=== PATIENT | female | born 2000 | race Caucasian/White ===

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

== ENCOUNTER 2019-01-08 13:43 | Emergency (ER) | payer SELFPAY ==
[~2019-01-08] VITALS: Ht 180.3 cm; Wt 104.5 kg
[~2019-01-08 13:43] MED LIST: CELEXA20 MG PO; CLARITIN 10 MG10 MG PO; ESTRACE2 MG PO; LAMICTAL ODT50 MG PO; TYLENOL W/CODEI1 TAB PO
[2019-01-08 13:46] VITALS: Ht 180.3 cm; Wt 104.5 kg
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
[2019-01-08 15:30] VITALS: BP 134/88
== END 2019-01-08 15:38 | disposition home or self-care (01) ==
LOC: D.ER 13:43
DX: F31.30 Bipolar disorder, current episode depressed, mild or moderate severity, unspecified (principal); Z73.3 Stress, not elsewhere classified; F41.9 Anxiety disorder, unspecified; F90.9 Attention-deficit hyperactivity disorder, unspecified type; Z72.0 Tobacco use; Z72.89 Other problems related to lifestyle

== ENCOUNTER 2019-06-21 08:25 | Emergency (ER) | payer MEDICAID ==
[~2019-06-21] VITALS: Ht 180.3 cm; Wt 81.4 kg
[2019-06-21 08:30] VITALS: Ht 180.3 cm; Wt 81.4 kg
[2019-06-21 08:57] LABS: BASOPHILS 0.4 % (0-2); EOSINOPHILS 0.6 % (0-7); HEMATOCRIT 37.8 % (36.0-48.0); HEMOGLOBIN 12.1 g/dL (12-16); IMMATURE GRANULOCYTES 0.4 % (0-5); LYMPHOCYTES 28.7 % (15-50); MCH 27.6 pg (26.0-34.0); MCV 86.3 fL (80.0-100.0); MEAN PLATELET VOLUME 9.4 fL (7.4-10.4); MONOCYTES 12.4 % (2-11); NEUTROPHILS 57.5 % (40-80); PLATELET COUNT 281 10x3/uL (130-400); RBC 4.38 10x6/uL (4.00-5.40); RDW 14.1 % (11.5-14.5); WBC 14.2 10x3/uL (4.8-10.8)
[2019-06-21 09:13] LABS: CALC OSMOLALITY 274 mosm/kg (275-300); CALCIUM 8.2 mg/dL (8.5-10.1); CARBON DIOXIDE 26.9 mmol/L (21.0-32.0); CHLORIDE - SERUM 104 mmol/L (98-107); GLUCOSE 96 mg/dL (74-106); POTASSIUM - SERUM 3.3 mmol/L (3.5-5.1); SODIUM 138 mmol/L (136-145); UREA NITROGEN 10 mg/dL (7-18); eGFR NON AFRICAN AMERICAN 75 mL/min (90-120)
[2019-06-21 09:16] LABS: HCG SERUM NEGATIVE (NEGATIVE)
[2019-06-21 09:19] LABS: ALBUMIN 3.4 g/dL (3.4-5.0); ALKALINE PHOSPHATASE 104 U/L (30-120); ALT (SGPT) 70 U/L (10-68); BILIRUBIN - TOTAL 0.77 mg/dL (0.2-1.3); PROTEIN - SERUM 6.8 g/dL (6.4-8.2)
[2019-06-21 13:40] VITALS: BP 118/74
== END 2019-06-21 14:15 | disposition home or self-care (01) ==
LOC: D.ER 08:25
PROVIDERS: Emergency Medicine
DX: T14.8XXA Other injury of unspecified body region, initial encounter (principal); Y09 Assault by unspecified means; Y93.9 Activity, unspecified; Y92.9 Unspecified place or not applicable; F15.10 Other stimulant abuse, uncomplicated; F19.10 Other psychoactive substance abuse, uncomplicated; S01.01XA Laceration without foreign body of scalp, initial encounter

== ENCOUNTER 2019-11-08 16:06 | Emergency (ER) | payer MEDICAID ==
[~2019-11-08] VITALS: Ht 180.3 cm; Wt 79.5 kg
[2019-11-08 16:11] VITALS: BP 111/54; Ht 180.3 cm; Wt 79.5 kg
[2019-11-08 16:45] LABS: BASOPHILS 0.3 % (0-2); HEMATOCRIT 32.8 % (36.0-48.0); HEMOGLOBIN 10.7 g/dL (12-16); IMMATURE GRANULOCYTES 0.1 % (0-5); LYMPHOCYTES 31.7 % (15-50); MCH 27.1 pg (26.0-34.0); MCHC 32.6 g/dL (31.0-37.0); MEAN PLATELET VOLUME 9.4 fL (7.4-10.4); MONOCYTES 14.6 % (2-11); NEUTROPHILS 52.3 % (40-80); RBC 3.95 10x6/uL (4.00-5.40); WBC 6.8 10x3/uL (4.8-10.8)
[2019-11-08 16:46] LABS: BILIRUBIN NEGATIVE (NEGATIVE); EPITHELIAL CELLS 0-5 /hpf (0-5); KETONE NEGATIVE (NEGATIVE); NITRITE POSITIVE (NEGATIVE); UROBILINOGEN NORMAL (NORMAL); WHITE CELLS - URINE >50 /hpf (0-5)
[2019-11-08 16:47] LABS: PLATELET COUNT 223 10x3/uL (130-400)
[2019-11-08 16:47] LABS: BACTERIA MANY /hpf (NONE SEEN)
[2019-11-08 16:57] LABS: CALC OSMOLALITY 264 mosm/kg (275-300); CALCIUM 8.8 mg/dL (8.5-10.1); CARBON DIOXIDE 29.5 mmol/L (21.0-32.0); CHLORIDE - SERUM 96 mmol/L (98-107); CREATININE - SERUM 0.9 mg/dL (0.6-1.3); GLUCOSE 105 mg/dL (74-106); POTASSIUM - SERUM 3.6 mmol/L (3.5-5.1); SODIUM 132 mmol/L (136-145); UREA NITROGEN 12 mg/dL (7-18); eGFR NON AFRICAN AMERICAN 85 mL/min (90-120)
[2019-11-08] MEDS ORDERED: KEFLEX500 MG PO (16:59)
[2019-11-08] MEDS ORDERED: MACROBID100 MG PO (16:59)
[2019-11-08 17:02] LABS: ALBUMIN 3.4 g/dL (3.4-5.0); ALKALINE PHOSPHATASE 96 U/L (30-120); ALT (SGPT) 25 U/L (10-68); BILIRUBIN - TOTAL 0.51 mg/dL (0.2-1.3); PROTEIN - SERUM 7.5 g/dL (6.4-8.2)
== END 2019-11-08 17:29 | disposition home or self-care (01) ==
LOC: D.ER 16:06
PROVIDERS: Emergency Medicine
DX: N39.0 Urinary tract infection, site not specified (principal); M54.5 Low back pain; E87.8 Other disorders of electrolyte and fluid balance, not elsewhere classified; E87.1 Hypo-osmolality and hyponatremia

== ENCOUNTER 2019-11-09 15:17 | Inpatient (IN) | payer MEDICAID ==
[~2019-11-09] VITALS: Ht 180.3 cm; Wt 85.9 kg
[~2019-11-09 15:17] MED LIST changes: +KEFLEX500 MG PO; +MACROBID100 MG PO
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
[2019-11-09 15:38] LABS: BASOPHILS 0.3 % (0-2); EOSINOPHILS 0.8 % (0-7); HEMATOCRIT 32.7 % (36.0-48.0); HEMOGLOBIN 10.9 g/dL (12-16); IMMATURE GRANULOCYTES 0.2 % (0-5); LYMPHOCYTES 35.7 % (15-50); MCH 27.3 pg (26.0-34.0); MCHC 33.3 g/dL (31.0-37.0); MCV 81.8 fL (80.0-100.0); MEAN PLATELET VOLUME 9.4 fL (7.4-10.4); MONOCYTES 14.9 % (2-11); NEUTROPHILS 48.1 % (40-80); WBC 6.6 10x3/uL (4.8-10.8)
[2019-11-09 15:47] LABS: PLATELET COUNT 269 10x3/uL (130-400)
[2019-11-09 15:48] LABS: APTT 38.1 SECONDS (22.8-39.4); INR 1.14 (0.85-1.17); PROTIME 14.5 SECONDS (11.6-15.0)
[2019-11-09 15:59] LABS: CALCIUM 8.7 mg/dL (8.5-10.1); CARBON DIOXIDE 25.7 mmol/L (21.0-32.0); CHLORIDE - SERUM 100 mmol/L (98-107); CREATININE - SERUM 0.8 mg/dL (0.6-1.3); GLUCOSE 97 mg/dL (74-106); POTASSIUM - SERUM 3.4 mmol/L (3.5-5.1); SODIUM 136 mmol/L (136-145); eGFR NON AFRICAN AMERICAN > 90 mL/min (90-120)
[2019-11-09 16:05] LABS: ALBUMIN 3.4 g/dL (3.4-5.0); ALKALINE PHOSPHATASE 95 U/L (30-120); ALT (SGPT) 27 U/L (10-68); PROTEIN - SERUM 7.7 g/dL (6.4-8.2)
[2019-11-09 16:12] LABS: CALC OSMOLALITY 269 mosm/kg (275-300); UREA NITROGEN 8 mg/dL (7-18)
--- NOTE | 2019-11-09 16:30 | NUR ---
DR. BURTON AT BEDSIDE, SURGERY EXPLAINED TO PATIENT, PATIENT AGREES TO ALL CONSENTS, VERY ANXIOUS.
[2019-11-09 16:31] LABS: HCG SERUM NEGATIVE (NEGATIVE)
--- NOTE | 2019-11-09 19:05 | NUR ---
BULLET SPECIMEN RECIEVED FROM NORMA Dukes CALLED [facility] TO PUBLICITY AGENT SPECI. WILL KEEP ON MY PERSON UNTIL SPECIMEN CAN BE HANDED TO [facility].
--- NOTE | 2019-11-09 19:05 | NUR ---
BULLET SPECIMEN RECIEVED FROM NORMA Dukes CALLED [facility] TO DIRECTOR PROPERTY SPECI. WILL KEEP ON MY PERSON TILL SPECIMEN CAN BE HANDED TO [facility].
--- NOTE | 2019-11-09 19:08 | NUR ---
RETAINED SPECIMEN SEALED WITH PATIENT STICKER AROUND LID TIMES 3 AND PLACED IN BIOHAZARD BAG. DELIVERED SPECIMEN TO NORMA ALEX IN THE EMERGENCY ROOM AT 1905 FOR COOK STATION FROM AN OFFICER.
[2019-11-09 19:30] VITALS: BP 111/69
[2019-11-09 20:00] VITALS: BP 111/65
--- NOTE | 2019-11-09 20:03 | NUR ---
OFFICER RUSHING WITH [facility] GIVEN SPEICMEN AT THIS TIME.
--- NOTE | 2019-11-09 20:03 | NUR ---
OFFICER RUSHING GIVEN SPECIMEN AT THIS TIME.
[2019-11-09 21:00] VITALS: BP 113/70
[2019-11-09 22:00] VITALS: BP 118/76
[2019-11-09 22:47] LABS: BILIRUBIN NEGATIVE (NEGATIVE); KETONE MODERATE mg/dL (NEGATIVE); NITRITE NEGATIVE (NEGATIVE); UROBILINOGEN NORMAL (NORMAL)
[2019-11-09 23:00] VITALS: BP 120/78
[2019-11-09 23:11] LABS: UDS - AMPHET POSITIVE QUAL (NEGATIVE); UDS - BARB NEGATIVE QUAL (NEGATIVE); UDS - BENZO NEGATIVE QUAL (NEGATIVE); UDS - COCAINE NEGATIVE QUAL (NEGATIVE); UDS - OPIATE POSITIVE QUAL (NEGATIVE); UDS - PCP NEGATIVE QUAL (NEGATIVE); UDS - THC POSITIVE QUAL (NEGATIVE)
[2019-11-10] VITALS (24 sets, daily range): BP systolic 115–133; BP diastolic 67–89; Ht 180.3 cm; Wt 85.9 kg
[2019-11-10 04:45] LABS: BASOPHILS 0.2 % (0-2); EOSINOPHILS 0 % (0-7); HEMATOCRIT 28.1 % (36.0-48.0); HEMOGLOBIN 8.9 g/dL (12-16); IMMATURE GRANULOCYTES 0.4 % (0-5); LYMPHOCYTES 22.8 % (15-50); MCHC 31.7 g/dL (31.0-37.0); MCV 82.2 fL (80.0-100.0); MEAN PLATELET VOLUME 9.9 fL (7.4-10.4); MONOCYTES 9.5 % (2-11); NEUTROPHILS 67.1 % (40-80); RBC 3.42 10x6/uL (4.00-5.40); RDW 14.2 % (11.5-14.5); WBC 5.7 10x3/uL (4.8-10.8)
[2019-11-10 04:50] LABS: PLATELET COUNT 149 10x3/uL (130-400)
[2019-11-10 04:56] LABS: ALKALINE PHOSPHATASE 70 U/L (30-120); BILIRUBIN - TOTAL 0.23 mg/dL (0.2-1.3); CALCIUM 8.3 mg/dL (8.5-10.1); CHLORIDE - SERUM 105 mmol/L (98-107); GLUCOSE 124 mg/dL (74-106); PRE-ALBUMIN 8.8 mg/dL (18.0-35.7); PROTEIN - SERUM 6.1 g/dL (6.4-8.2); SODIUM 137 mmol/L (136-145)
[2019-11-10 05:02] LABS: ALBUMIN 2.5 g/dL (3.4-5.0); ALT (SGPT) 19 U/L (10-68); CALC OSMOLALITY 271 mosm/kg (275-300); CREATININE - SERUM 0.5 mg/dL (0.6-1.3); POTASSIUM - SERUM 4.3 mmol/L (3.5-5.1); UREA NITROGEN 5 mg/dL (7-18); eGFR NON AFRICAN AMERICAN > 90 mL/min (90-120)
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
--- NOTE | 2019-11-10 08:10 | NUR ---
DR. KANG AT ROOM UPDATED AND EXAMINES PATIENT. OK TO START FENTANYL GTT AT 25 MCG/HR IF NEEDED FOR SEDATION WITH A MAX RATE OF 100 MCG/HR. WILL LEAVE SEDATED ON VENT TODAY AND PLAN TO EXTUBATE TOMORROW.
--- NOTE | 2019-11-10 09:00 | NUR ---
PATIENT TURNED AND REPOSITIONED IN BED. VSS.
--- NOTE | 2019-11-10 10:00 | NUR ---
DR. PATINO AT ROOM UPDATED AND EXAMINES PATIENT.
--- NOTE | 2019-11-10 11:00 | NUR ---
REASSESSMENT COMPLETED. VSS. TURNED AND REPOSTIONED IN BED.
--- NOTE | 2019-11-10 13:09 | NUR ---
DR. BURTON AT ROOM UPDATED AND EXAMINES PATIENT. RT AT ROOM COLLECTED SPUTUM CULTURE AND SENT TO LAB. FIO2 DECREASED TO 30%, SPO2 - 100%. VSS. TURNED AND POSITIONED IN BED.
--- NOTE | 2019-11-10 15:03 | NUR ---
REASSESSMENT COMPLETED. VSS. PATIENT TURNED AND REPOSITIONED IN BED.
--- NOTE | 2019-11-10 17:11 | NUR ---
PATIENT RESTLESS AND C/O PAIN TO ABDOMEN, FENATNYL GTT ORDERED PER DR. KANG FOR 25 MCG/H TO A MAX OF 100 MCG/H.
--- NOTE | 2019-11-10 18:19 | NUR ---
PATIENT RESTING QUIELTY. VSS. FENTANYL GTT AT 25 MCG/HR AND PROPOFOL GTT AT 60 MCG/KG/MIN, WILL AWAKEN BRIEFLY AND FOLLOW SIMPLE COMMANDS AND DRIFTS BACK TO SLEEP.
[2019-11-11] VITALS (22 sets, daily range): BP systolic 98–128; BP diastolic 49–83
[2019-11-11 05:06] LABS: BASOPHILS 0.2 % (0-2); EOSINOPHILS 3.5 % (0-7); HEMATOCRIT 28.4 % (36.0-48.0); IMMATURE GRANULOCYTES 0.2 % (0-5); LYMPHOCYTES 42.2 % (15-50); MCH 26.7 pg (26.0-34.0); MCHC 31.7 g/dL (31.0-37.0); MEAN PLATELET VOLUME 9.2 fL (7.4-10.4); MONOCYTES 9.3 % (2-11); NEUTROPHILS 44.6 % (40-80); RBC 3.37 10x6/uL (4.00-5.40); RDW 14.5 % (11.5-14.5); WBC 5.9 10x3/uL (4.8-10.8)
[2019-11-11 05:07] LABS: MCV 84.3 fL (80.0-100.0); PLATELET COUNT 266 10x3/uL (130-400)
[2019-11-11 05:09] LABS: ALBUMIN 2.3 g/dL (3.4-5.0); ALKALINE PHOSPHATASE 67 U/L (30-120); BILIRUBIN - TOTAL 0.15 mg/dL (0.2-1.3); CALCIUM 7.8 mg/dL (8.5-10.1); CARBON DIOXIDE 26.2 mmol/L (21.0-32.0); CHLORIDE - SERUM 110 mmol/L (98-107); CREATININE - SERUM 0.6 mg/dL (0.6-1.3); GLUCOSE 92 mg/dL (74-106); MAGNESIUM - SERUM 2.1 mg/dL (1.8-2.4); POTASSIUM - SERUM 3.7 mmol/L (3.5-5.1); PROTEIN - SERUM 5.7 g/dL (6.4-8.2); SODIUM 143 mmol/L (136-145); eGFR NON AFRICAN AMERICAN > 90 mL/min (90-120)
[2019-11-11 05:14] LABS: ALT (SGPT) 13 U/L (10-68); CALC OSMOLALITY 280 mosm/kg (275-300); PHOSPHOROUS 3.6 mg/dL (2.5-4.9); UREA NITROGEN 2 mg/dL (7-18)
--- NOTE | 2019-11-11 07:30 | NUR ---
SHIFT ASSESSMENT COMPLETED. SEE FLOWCHART. AGITATED WHEN AROUSED TO TOUCH AND VOICE. NODS OR SHAKES HEAD TO QUESTIONS.
[2019-11-11 09:13] LABS: HEPATITIS C ANTIBODY 0.3 S/CO RAT (0.0-0.9)
--- NOTE | 2019-11-11 09:30 | NUR ---
DIPRIVAN OFF. RESPIRATORY THERAPY NOTIFIED FOR PRESSURE SUPPORT FOR WEANING TRIAL. PATIENT QUICKLY BECOMES RESTLESS, AGITATED, ATTEMPTING TO SELF-EXTUBATE. INSTRUCTIONS AND REASSURANCE GIVEN.
--- NOTE | 2019-11-11 10:32 | NUR ---
ON PRESSURE SUPPORT. AGITATED WHEN AWAKE. NODS HEAD OR SHAKES HEAD APPROPRIATELY. USING HAND MOTIONS AND BEATING ON SIDE RAILS. REINFORCEMENT OF WEANING INSTRUCTIONS GIVEN. SLEEPING INTERMITTENTLY.
--- NOTE | 2019-11-11 11:05 | NUR ---
REQUIRED CONTINUOUS MONITORING WHILE ON PS AND OFF SEDATION TO PREVENT SELF-EXTUBATION. PULLING AT RESTRAINTS AND BEATING ON SIDE RAILS. EXTUBATED TO TX AT 3L/M. IMMEDIATELY TALKING, DEMANDING WRISTS TO BE RELEASED. RESTRAINTS REMOVED. FENTANYL DRIP D/C'D. VITAL SIGNS STABLE.
--- NOTE | 2019-11-11 11:30 | NUR ---
BACKPACK GIVEN TO PATIENT ON REQUEST AFTER QUESTIONED ABOUT ANY DRUGS OR WEAPONS PRESENT. PAITENT IS VERBALLY ABUSIVE, AGRESSIVE AND CURSING. ASKING FOR PAIN MEDICATION. DR. BURTON PAGED FOR NEW ORDERS.
--- NOTE | 2019-11-11 12:30 | NUR ---
ORDER RECEIVED FROM DR. BURTON FOR ATIVAN IV FOR SEDATION AND DILAUDID IV FOR PAIN. DR. BURTON NOTIFIED OF AGRESSIVENESS AND CURSING. STATING SHE IS GOING TO LEAVE. DR. BURTON STATES IF SHE WANTS TO LEAVE AMA TO LET HER. EDUCATION DONE AND MEDS GIVEN. PULLED OFF NC AND REFUSES TO WEAR IT. REPEATEDLY ASKING FOR CELL PHONE. SHE IS UNABLE TO FIND IT IN THE BACKPACK AND ACCUSES THIS NURSE OF STEALING IT. REFUSES TO ALLOW ME TO LOOK IN BACKPACK FOR IT. CURSING REPEATEDLY.
--- NOTE | 2019-11-11 12:50 | NUR ---
SIMONE HAS A CANNED DR. HAILE OPEN (FROM BACKPACK). PATIENT EDUCATION DONE ON POSSIBEL N&V. REFUSES TO GIVE IT UP. CONTINUES TO ASK FOR CELL PHONE AND ACCUSE STAFF OF TAKING IT.
--- NOTE | 2019-11-11 12:50 | NUR ---
HATCHERY MANAGER BERTRAND HERE TO TALK WITH PATIENT. MOTHER ARRIVES. VISITS WITH PATIENT AND HATCHERY MANAGER.
--- NOTE | 2019-11-11 15:40 | NUR ---
PATIENT HAS PULLED OF BP CUFF, SPO2 AND ECG LEADS REPEATEDLY SINCE EXTUBATED AT 1105. HAS REFUSED TO HAVE BP CUFF BACK ON. CONVINCED TO ALLOW ONE BP CHECK AT THIS TIME. MONITOR LEADS REPLACED AND SPO2 REPLACED. ASKING FOR WATER. ICE CHIPS GIVEN AND EXPLAINED.
--- NOTE | 2019-11-11 16:05 | NUR ---
SLEEPING ON RIGHT SIDE. NOT DISTURBED AT THIS TIME.
--- NOTE | 2019-11-11 17:00 | NUR ---
ISOLATION DISCONTINUED. NO EVIDENCE OF HEAD LICE FOUND TODAY. MOTHER AND AUNT AT BEDSIDE. DISCUSSED VISITING TIME AND LIMITATION TO ONE VISITOR. AUNT TO STAY WITH PATIENT. MOTHER IS WITH GRANDMOTHER ON MED/SURG. PATIENT MEDICATED WITH DILAUDID 1 MG IV FOR 8/10 PAIN. REINFORCED ICE CHIPS ONLY. PATIENT IS MORE COOPERATIVE AND LESS ABUSIVE LANGUAGE NOW.
--- NOTE | 2019-11-11 17:45 | NUR ---
SLEEPING ON RIGHT SIDE. AUNT AT BEDSIDE. MONITORS REMAIN ON AT THIS TIME.
[2019-11-12] VITALS (24 sets, daily range): BP systolic 98–126; BP diastolic 52–77
[2019-11-12 03:36] LABS: BASOPHILS 0.3 % (0-2); HEMATOCRIT 31.4 % (36.0-48.0); HEMOGLOBIN 9.9 g/dL (12-16); IMMATURE GRANULOCYTES 0.3 % (0-5); LYMPHOCYTES 30.9 % (15-50); MCH 26.8 pg (26.0-34.0); MCHC 31.5 g/dL (31.0-37.0); MCV 84.9 fL (80.0-100.0); MEAN PLATELET VOLUME 9.1 fL (7.4-10.4); MONOCYTES 7.7 % (2-11); NEUTROPHILS 56.8 % (40-80); PLATELET COUNT 312 10x3/uL (130-400); RDW 14.1 % (11.5-14.5)
[2019-11-12 03:54] LABS: ALBUMIN 2.2 g/dL (3.4-5.0); ALKALINE PHOSPHATASE 72 U/L (30-120); ALT (SGPT) 19 U/L (10-68); BILIRUBIN - TOTAL 0.29 mg/dL (0.2-1.3); CALC OSMOLALITY 273 mosm/kg (275-300); CALCIUM 7.9 mg/dL (8.5-10.1); CARBON DIOXIDE 24.7 mmol/L (21.0-32.0); CHLORIDE - SERUM 105 mmol/L (98-107); CREATININE - SERUM 0.5 mg/dL (0.6-1.3); GLUCOSE 77 mg/dL (74-106); MAGNESIUM - SERUM 1.9 mg/dL (1.8-2.4); PHOSPHOROUS 3.8 mg/dL (2.5-4.9); POTASSIUM - SERUM 3.9 mmol/L (3.5-5.1); PROTEIN - SERUM 5.8 g/dL (6.4-8.2); SODIUM 139 mmol/L (136-145); UREA NITROGEN 4 mg/dL (7-18); eGFR NON AFRICAN AMERICAN > 90 mL/min (90-120)
--- NOTE | 2019-11-12 10:48 | NUR ---
DR PEÑA AT THE PTS BEDSIDE.
--- NOTE | 2019-11-12 12:35 | NUR ---
active bs x4. DR MICHEAL MEDLEY R/T ADVANSING DIET. WAITNG FOR HIM TO CALL BACK.
[2019-11-13] VITALS (17 sets, daily range): BP systolic 98–136; BP diastolic 54–85
[2019-11-13 05:42] LABS: BASOPHILS 0.1 % (0-2); EOSINOPHILS 8.3 % (0-7); HEMATOCRIT 31.3 % (36.0-48.0); HEMOGLOBIN 10.2 g/dL (12-16); IMMATURE GRANULOCYTES 2.7 % (0-5); LYMPHOCYTES 32.2 % (15-50); MCH 26.9 pg (26.0-34.0); MCHC 32.6 g/dL (31.0-37.0); MEAN PLATELET VOLUME 8.7 fL (7.4-10.4); MONOCYTES 8.1 % (2-11); NEUTROPHILS 48.6 % (40-80); PLATELET COUNT 318 10x3/uL (130-400); RBC 3.79 10x6/uL (4.00-5.40); WBC 8.3 10x3/uL (4.8-10.8)
[2019-11-13 05:44] LABS: MCV 82.6 fL (80.0-100.0)
[2019-11-13 05:58] LABS: ALBUMIN 2.1 g/dL (3.4-5.0); ALKALINE PHOSPHATASE 73 U/L (30-120); BILIRUBIN - TOTAL 0.14 mg/dL (0.2-1.3); CARBON DIOXIDE 27.4 mmol/L (21.0-32.0); CHLORIDE - SERUM 106 mmol/L (98-107); CREATININE - SERUM 0.5 mg/dL (0.6-1.3); MAGNESIUM - SERUM 1.9 mg/dL (1.8-2.4); POTASSIUM - SERUM 3.7 mmol/L (3.5-5.1); PROTEIN - SERUM 5.6 g/dL (6.4-8.2); SODIUM 140 mmol/L (136-145); UREA NITROGEN 3 mg/dL (7-18); eGFR NON AFRICAN AMERICAN > 90 mL/min (90-120)
[2019-11-13 06:06] LABS: CALC OSMOLALITY 276 mosm/kg (275-300); GLUCOSE 116 mg/dL (74-106)
[2019-11-13 06:07] LABS: ALT (SGPT) 35 U/L (10-68)
--- NOTE | 2019-11-13 12:50 | NUR ---
IV L WRIST INFILTRATED AND LEAKING. SITE DC'D. IV STARTED WITH 20G ON 1ST ATTEMPT IN L AC.
[2019-11-13] MEDS ORDERED: HYDROCODON-ACE1 EAC7 PO (20:22)
[2019-11-13] MEDS ORDERED: LEVAQUIN750 MG PO (20:22)
[2019-11-13] MEDS ORDERED: COLACE100 MG PO (20:22)
--- NOTE | 2019-11-13 23:00 | NUR ---
PT WILL DISCHARGE ON 11/[address] BURTON. CASE MANAGEMENT TO ASSIST WITH DISCHARGE NEEDS. DISCUSSED WITH PT AND PTS MOTHER.
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
[2019-11-14 03:00] VITALS: BP 120/68
[2019-11-14 04:43] LABS: BASOPHILS 0.2 % (0-2); EOSINOPHILS 5.4 % (0-7); HEMATOCRIT 31.9 % (36.0-48.0); HEMOGLOBIN 10.1 g/dL (12-16); IMMATURE GRANULOCYTES 0.3 % (0-5); LYMPHOCYTES 38.2 % (15-50); MCH 26.4 pg (26.0-34.0); MCHC 31.7 g/dL (31.0-37.0); MCV 83.5 fL (80.0-100.0); MONOCYTES 7.9 % (2-11); PLATELET COUNT 381 10x3/uL (130-400); RBC 3.82 10x6/uL (4.00-5.40); RDW 14.1 % (11.5-14.5); WBC 6.5 10x3/uL (4.8-10.8)
[2019-11-14 05:16] LABS: ALKALINE PHOSPHATASE 68 U/L (30-120); ALT (SGPT) 31 U/L (10-68); BILIRUBIN - TOTAL 0.11 mg/dL (0.2-1.3); CALCIUM 7.9 mg/dL (8.5-10.1); CARBON DIOXIDE 29.5 mmol/L (21.0-32.0); CHLORIDE - SERUM 106 mmol/L (98-107); CREATININE - SERUM 0.6 mg/dL (0.6-1.3); GLUCOSE 106 mg/dL (74-106); MAGNESIUM - SERUM 1.9 mg/dL (1.8-2.4); PHOSPHOROUS 3.9 mg/dL (2.5-4.9); POTASSIUM - SERUM 3.6 mmol/L (3.5-5.1); PROTEIN - SERUM 5.6 g/dL (6.4-8.2); SODIUM 140 mmol/L (136-145); eGFR NON AFRICAN AMERICAN > 90 mL/min (90-120)
[2019-11-14 05:27] LABS: CALC OSMOLALITY 276 mosm/kg (275-300); UREA NITROGEN 6 mg/dL (7-18)
--- NOTE | 2019-11-14 11:28 | NUR ---
Nutrition Follow-up: Extubated 11/10. Good/fair PO intake. Noted plans to d/c. Diet: Regular PO intake: 60% avg x 3 meals yesterday Wt: 189# (11/11) Labs noted: Ca 7.9, Alb 2.0 Meds noted: Pepcid, NS @ 125, electrolyte protocol -Encourage PO intake and honor food preferences. -Monitor wt. -RD following.
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
== END 2019-11-14 16:55 | disposition home or self-care (01) | DRG 579 ==
LOC: D.ER 15:17 → D.CVICU 19:21
PROVIDERS: Emergency Medicine; Family Medicine; ADMIT Surgery; ATTEND Surgery
PROC: 0WJF0ZZ Inspection of Abdominal Wall, Open Approach (ICD-10-PCS; principal; 2019-11-09 16:35)
DX: S31.105A Unspecified open wound of abdominal wall, periumbilic region without penetration into peritoneal cavity, initial encounter (principal); G92 Toxic encephalopathy; N30.00 Acute cystitis without hematuria; F15.93 Other stimulant use, unspecified with withdrawal; N39.0 Urinary tract infection, site not specified; W34.00XA Accidental discharge from unspecified firearms or gun, initial encounter; T14.8XXA Other injury of unspecified body region, initial encounter; X58.XXXA Exposure to other specified factors, initial encounter; R06.89 Other abnormalities of breathing; B85.2 Pediculosis, unspecified; R16.2 Hepatomegaly with splenomegaly, not elsewhere classified

== ENCOUNTER 2019-11-17 19:15 | Emergency (ER) | payer MEDICAID ==
[~2019-11-17] VITALS: Ht 180.3 cm; Wt 81.8 kg
[~2019-11-17 19:15] MED LIST changes: +COLACE100 MG PO; +HYDROCODON-ACE1 EAC7 PO; +LEVAQUIN750 MG PO
[2019-11-17 20:14] VITALS: Ht 180.3 cm; Wt 81.8 kg
[2019-11-17 20:58] LABS: BASOPHILS 0.4 % (0-2); EOSINOPHILS 5.8 % (0-7); HEMATOCRIT 38.3 % (36.0-48.0); HEMOGLOBIN 12.3 g/dL (12-16); IMMATURE GRANULOCYTES 1.4 % (0-5); LYMPHOCYTES 36.1 % (15-50); MCH 27.3 pg (26.0-34.0); MCHC 32.1 g/dL (31.0-37.0); MCV 84.9 fL (80.0-100.0); MEAN PLATELET VOLUME 8.8 fL (7.4-10.4); MONOCYTES 5.4 % (2-11); NEUTROPHILS 50.9 % (40-80); RBC 4.51 10x6/uL (4.00-5.40); RDW 14.8 % (11.5-14.5); WBC 8.3 10x3/uL (4.8-10.8)
[2019-11-17 21:00] LABS: PLATELET COUNT 515 10x3/uL (130-400)
[2019-11-17 21:04] LABS: BILIRUBIN NEGATIVE (NEGATIVE); KETONE NEGATIVE (NEGATIVE); NITRITE NEGATIVE (NEGATIVE); UROBILINOGEN NORMAL mg/dL (< 2)
[2019-11-17 21:06] LABS: HCG URINE NEGATIVE (NEGATIVE)
[2019-11-17 21:08] LABS: BACTERIA FEW /HPF (NONE SEEN); EPITHELIAL CELLS 0-5 /hpf (0-5); WHITE CELLS - URINE 0-5 HPF (0-4)
[2019-11-17 21:09] LABS: AMORPHOUS SEDIMENT >1+ /lpf (NONE SEEN)
[2019-11-17 21:18] LABS: CALC OSMOLALITY 270 mosm/kg (275-300); CALCIUM 9.2 mg/dL (8.5-10.1); CARBON DIOXIDE 30.5 mmol/L (21.0-32.0); CHLORIDE - SERUM 100 mmol/L (98-107); CREATININE - SERUM 0.6 mg/dL (0.6-1.3); GLUCOSE 93 mg/dL (74-106); POTASSIUM - SERUM 4.3 mmol/L (3.5-5.1); SODIUM 135 mmol/L (136-145); UREA NITROGEN 16 mg/dL (7-18); eGFR NON AFRICAN AMERICAN > 90 mL/min (90-120)
[2019-11-17 21:20] LABS: UDS - AMPHET NEGATIVE QUAL (NEGATIVE); UDS - BARB NEGATIVE QUAL (NEGATIVE); UDS - BENZO NEGATIVE QUAL (NEGATIVE); UDS - COCAINE NEGATIVE QUAL (NEGATIVE); UDS - OPIATE NEGATIVE QUAL (NEGATIVE); UDS - PCP NEGATIVE QUAL (NEGATIVE); UDS - THC NEGATIVE QUAL (NEGATIVE)
[2019-11-17 21:21] LABS: ALBUMIN 3.5 g/dL (3.4-5.0); ALKALINE PHOSPHATASE 80 U/L (30-120); ALT (SGPT) 37 U/L (10-68); BILIRUBIN - TOTAL 0.16 mg/dL (0.2-1.3); PROTEIN - SERUM 7.9 g/dL (6.4-8.2)
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
[2019-11-18 06:35] VITALS: BP 120/61
== END 2019-11-18 08:51 ==
LOC: D.ER 19:15
PROVIDERS: Family Medicine
DX: R45.851 Suicidal ideations (principal); R68.84 Jaw pain

== ENCOUNTER 2020-08-26 18:54 | Emergency (ER) | payer BC ==
[~2020-08-26] VITALS: Ht 180.3 cm; Wt 99.8 kg
[~2020-08-26 18:54] MED LIST changes: +KEFLEX250 MG PO
[2020-08-26 19:35] VITALS: BP 120/77; Ht 180.3 cm; Wt 99.8 kg
== END 2020-08-26 20:37 | disposition left against medical advice (07) ==
LOC: D.ER 18:54
DX: R11.10 Vomiting, unspecified (principal)

== ENCOUNTER 2020-08-28 12:43 | Inpatient (IN) | payer BC ==
[~2020-08-28] VITALS: Ht 180.3 cm; Wt 95.5 kg
[2020-08-28 15:15] LABS: BASOPHILS 0.3 % (0-2); EOSINOPHILS 0.1 % (0-7); HEMATOCRIT 46.9 % (36.0-48.0); HEMOGLOBIN 16.5 g/dL (12-16); LYMPHOCYTES 12.1 % (15-50); MCH 29.5 pg (26.0-34.0); MCHC 35.1 g/dL (31.0-37.0); MCV 84.1 fL (80.0-100.0); MEAN PLATELET VOLUME 8.5 fL (7.4-10.4); MONOCYTES 16.9 % (2-11); NEUTROPHILS 70.6 % (40-80); PLATELET COUNT 295 10x3/uL (130-400); RBC 5.57 10x6/uL (4.00-5.40); RDW 13.2 % (11.5-14.5); WBC 10.5 10x3/uL (4.8-10.8)
[2020-08-28 15:30] LABS: ALBUMIN 4.7 g/dL (3.4-5.0); ALKALINE PHOSPHATASE 121 U/L (30-120); ALT (SGPT) 155 U/L (10-68); BILIRUBIN - TOTAL 1.61 mg/dL (0.2-1.3); CALCIUM 9.1 mg/dL (8.5-10.1); CARBON DIOXIDE 23.5 mmol/L (21.0-32.0); GLUCOSE 121 mg/dL (74-106); PROTEIN - SERUM 9.3 g/dL (6.4-8.2); SODIUM 121 mmol/L (136-145); eGFR NON AFRICAN AMERICAN 33 mL/min (90-120)
[2020-08-28 15:35] LABS: ACETAMINOPHEN < 10.0 ug/mL (10.0-30.0); CALC OSMOLALITY 276 mosm/kg (275-300)
[2020-08-28 15:43] LABS: CHLORIDE - SERUM 82 mmol/L (98-107); UREA NITROGEN 103 mg/dL (7-18)
[2020-08-28 16:15] LABS: CREATINE KINASE 12171 UL (21-215)
[2020-08-28 16:43] LABS: CKMB 59.5 U/L (0.0-3.6)
[2020-08-28 20:01] VITALS: BP 139/87
--- NOTE | 2020-08-28 20:03 | NUR ---
ASSUMED CARE OF PATIENT. CLARIFIED WITH SHIRLENE GRANADOS RN. PATIENT HAS RECEIVED A TOTAL OF 2 LITERS OF LR. IV 22 GAUGE LEFT HAND WITH NO REDNESS OF EDEMA. NS INITIATED PER ORDER
--- NOTE | 2020-08-28 20:13 | NUR ---
URINE CUP TO PT. STATES UNABLE TO URINATE AT THIS TIME. CALL LIGHT IN REACH
--- NOTE | 2020-08-28 20:39 | NUR ---
WATER AND JELLO TO PATIENT
--- NOTE | 2020-08-28 21:30 | NUR ---
URINE SPEC TO LAB
[2020-08-28 22:22] LABS: HCG URINE NEGATIVE (NEGATIVE)
[2020-08-28 22:24] LABS: BACTERIA FEW HPF (<MOD); BILIRUBIN NEGATIVE (NEGATIVE); KETONE 1+ mg/dL (< 1+); NITRITE NEGATIVE (NEGATIVE); SQUAMOUS EPITHELIAL <1 HPF (0-4); UROBILINOGEN NORMAL mg/dL (< 2); WHITE CELLS - URINE 3 HPF (0-4)
[2020-08-28 22:25] LABS: UDS - AMPHET POSITIVE QUAL (NEGATIVE); UDS - BARB NEGATIVE QUAL (NEGATIVE); UDS - BENZO NEGATIVE QUAL (NEGATIVE); UDS - COCAINE NEGATIVE QUAL (NEGATIVE); UDS - OPIATE NEGATIVE QUAL (NEGATIVE); UDS - PCP NEGATIVE QUAL (NEGATIVE); UDS - THC NEGATIVE QUAL (NEGATIVE)
--- NOTE | 2020-08-29 05:17 | NUR ---
ASSISTED TO BATHROOM VIA WC. PT AWAKE AND ALERT. ICE WATER TO PT.
[2020-08-29 05:49] LABS: BASOPHILS 0.3 % (0-2); EOSINOPHILS 0.5 % (0-7); HEMATOCRIT 42.2 % (36.0-48.0); HEMOGLOBIN 14.7 g/dL (12-16); LYMPHOCYTES 17.6 % (15-50); MCH 29.8 pg (26.0-34.0); MCHC 34.9 g/dL (31.0-37.0); MCV 85.5 fL (80.0-100.0); MONOCYTES 16.3 % (2-11); NEUTROPHILS 65.3 % (40-80); PLATELET COUNT 289 10x3/uL (130-400); RBC 4.93 10x6/uL (4.00-5.40); RDW 13.1 % (11.5-14.5)
[2020-08-29 06:19] LABS: ALBUMIN 3.8 g/dL (3.4-5.0); ANION GAP 15.4 mmol/L (8-16); BILIRUBIN - TOTAL 1.41 mg/dL (0.2-1.3); CALCIUM 8.3 mg/dL (8.5-10.1); CARBON DIOXIDE 23.1 mmol/L (21.0-32.0); POTASSIUM - SERUM 3.5 mmol/L (3.5-5.1); PROTEIN - SERUM 7.9 g/dL (6.4-8.2)
[2020-08-29 06:20] LABS: CREATININE - SERUM 1.2 mg/dL (0.6-1.3)
--- NOTE | 2020-08-29 08:00 | NUR ---
PATIENT IS AWAKE AND ALERT. C/O PAIN FROM RASH BILATERAL INNER THIGHS. EXCORIATED APPEARING, DENUDED AND SCABBED AREAS. SCRATCHES TO ARMS, LEGS, FACE, NECK IN EARLY STAGES OF HEALING. MULTIPLE BRUISES PRESENT ON LOWER LEGS. PATIENT ASSISTED TO BEDPAN.
[2020-08-29 10:12] LABS: HEPATITIS C ANTIBODY >11.0 S/CO RAT (0.0-0.9)
[2020-08-29 10:46] VITALS: BP 123/72
[2020-08-29 11:14] LABS: CKMB 23.2 U/L (0.0-3.6); CREATINE KINASE 6038 UL (21-215)
--- NOTE | 2020-08-29 11:45 | NUR ---
MOANING AND C/O GENERALIZED PAIN 8/10 ON PAIN SCALE. MEDICATED WITH MORPHINE 4MG IV. ASSISTED TO AMBULATE TO BATHROOM. MOANS IN PAIN WITH EACH STEP. GAIT IS HALTING WITH SHUFFLING OF FEET.
--- NOTE | 2020-08-29 14:00 | NUR ---
SLEEPING WITH BLANKET OVER HEAD.
--- NOTE | 2020-08-29 18:10 | NUR ---
C/O GENERALIZED PAIN AT 10/09. MEDICATED WITH MORPHINE 4MG IV. AMBULATES TO BATHROOM AD GRIFFIN.
[2020-08-29 19:20] VITALS: BP 120/71
[2020-08-29 23:20] VITALS: BP 116/68
[2020-08-30] VITALS (7 sets, daily range): BP systolic 112–126; BP diastolic 50–81; BMI 29.3
[2020-08-30 05:48] LABS: BASOPHILS 0.3 % (0-2); EOSINOPHILS 1.2 % (0-7); HEMATOCRIT 35.5 % (36.0-48.0); HEMOGLOBIN 12.3 g/dL (12-16); LYMPHOCYTES 22.1 % (15-50); MCH 29.9 pg (26.0-34.0); MCHC 34.6 g/dL (31.0-37.0); MCV 86.4 fL (80.0-100.0); MEAN PLATELET VOLUME 8.6 fL (7.4-10.4); NEUTROPHILS 57.4 % (40-80); RDW 12.9 % (11.5-14.5); WBC 7.3 10x3/uL (4.8-10.8)
[2020-08-30 05:56] LABS: PLATELET COUNT 200 10x3/uL (130-400)
[2020-08-30 06:35] LABS: ALKALINE PHOSPHATASE 81 U/L (30-120); ALT (SGPT) 89 U/L (10-68); BILIRUBIN - TOTAL 0.54 mg/dL (0.2-1.3); C-REACTIVE PROTEIN 5.3 mg/dL (0.0-0.9); CALCIUM 7.8 mg/dL (8.5-10.1); CARBON DIOXIDE 26.9 mmol/L (21.0-32.0); CHLORIDE - SERUM 96 mmol/L (98-107); GLUCOSE 104 mg/dL (74-106); POTASSIUM - SERUM 3.4 mmol/L (3.5-5.1); PROTEIN - SERUM 6.5 g/dL (6.4-8.2); SODIUM 130 mmol/L (136-145)
[2020-08-30 06:55] LABS: CALC OSMOLALITY 261 mosm/kg (275-300); CREATINE KINASE 2719 UL (21-215); CREATININE - SERUM 0.8 mg/dL (0.6-1.3); UREA NITROGEN 15 mg/dL (7-18); eGFR NON AFRICAN AMERICAN > 90 mL/min (90-120)
[2020-08-30 06:56] LABS: CKMB 3.4 U/L (0.0-3.6)
--- NOTE | 2020-08-30 07:15 | NUR ---
ASSUMED CARE OFPT. RESTING IN BED WITH EYES CLOSED, AROUSES EASILY WHEN NAME CALLED. NS INFUSING LEFT HAND WITHOUT PBMS NOTED AT SITE. RESP EVEN/UNALBORED SKIN W/D/P
--- NOTE | 2020-08-30 07:32 | NUR ---
REPORT TO SHERITA FELIX
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
--- NOTE | 2020-08-30 08:45 | NUR ---
PATIENT IN BED EATING BREAKFAST AT THIS TIME. RECIEVED MORPHINE FOR PAIN. IV INTACT. CALL LIGHT WITHIN REACH.
--- NOTE | 2020-08-30 18:45 | NUR ---
PATIENT IN BED WITH IV ITNACT. EYES CLOSED RESTING QUIETLY. CALL LIIGHT WITHIN REACH.
--- NOTE | 2020-08-30 20:00 | NUR ---
ALERT RESTING IN BED, C/O THORN IN RIGHT THUMB, INSTRUCTED NEED TO HAVE DR LOOK AT IT IN MORNING, SEE SHIFT ASSESSMENT, CALL LIGHT IN REAC
[2020-08-31] VITALS: BP 102/53
[2020-08-31 04:00] VITALS: BP 100/64
[2020-08-31 07:03] LABS: BASOPHILS 0.5 % (0-2); HEMATOCRIT 32.3 % (36.0-48.0); HEMOGLOBIN 11.3 g/dL (12-16); LYMPHOCYTES 24.6 % (15-50); MCH 30.3 pg (26.0-34.0); MCHC 34.9 g/dL (31.0-37.0); MEAN PLATELET VOLUME 8.4 fL (7.4-10.4); MONOCYTES 17.1 % (2-11); NEUTROPHILS 54.8 % (40-80); PLATELET COUNT 183 10x3/uL (130-400); RBC 3.71 10x6/uL (4.00-5.40); RDW 12.7 % (11.5-14.5); WBC 7.4 10x3/uL (4.8-10.8)
[2020-08-31 07:42] LABS: ALBUMIN 2.5 g/dL (3.4-5.0); ALKALINE PHOSPHATASE 64 U/L (30-120); ALT (SGPT) 70 U/L (10-68); BILIRUBIN - TOTAL 0.33 mg/dL (0.2-1.3); CALCIUM 7.8 mg/dL (8.5-10.1); CARBON DIOXIDE 27.2 mmol/L (21.0-32.0); CHLORIDE - SERUM 100 mmol/L (98-107); CKMB 1.6 U/L (0.0-3.6); CREATININE - SERUM 0.6 mg/dL (0.6-1.3); GLUCOSE 117 mg/dL (74-106); MAGNESIUM - SERUM 1.9 mg/dL (1.8-2.4); POTASSIUM - SERUM 3.7 mmol/L (3.5-5.1); PROTEIN - SERUM 5.8 g/dL (6.4-8.2); SODIUM 134 mmol/L (136-145); eGFR NON AFRICAN AMERICAN > 90 mL/min (90-120)
[2020-08-31 07:48] LABS: CALC OSMOLALITY 267 mosm/kg (275-300); CREATINE KINASE 810 UL (21-215); UREA NITROGEN 10 mg/dL (7-18)
--- NOTE | 2020-08-31 09:28 | NUR ---
ALERT AND ORIENTED. ASSESSMENT COMPLETE. DENIES NEEDS. BED LOW. CALL SANTOS AND PERSONAL ITEMS IN REACH. WILL CONTINUE TO MONITOR.
[2020-08-31 09:31] VITALS: BP 111/53
[2020-08-31 12:11] VITALS: BP 104/57
[2020-08-31 17:23] VITALS: BP 115/61
[2020-08-31 20:00] VITALS: BP 116/62
[2020-09-01 05:07] LABS: BASOPHILS 0.3 % (0-2); EOSINOPHILS 4.1 % (0-7); HEMATOCRIT 33.3 % (36.0-48.0); HEMOGLOBIN 11.4 g/dL (12-16); LYMPHOCYTES 34.2 % (15-50); MCHC 34.1 g/dL (31.0-37.0); MEAN PLATELET VOLUME 8.1 fL (7.4-10.4); MONOCYTES 15.1 % (2-11); NEUTROPHILS 46.3 % (40-80); PLATELET COUNT 214 10x3/uL (130-400); RBC 3.78 10x6/uL (4.00-5.40); RDW 12.7 % (11.5-14.5); WBC 7.1 10x3/uL (4.8-10.8)
--- NOTE | 2020-09-01 05:14 | NUR ---
I have reviewed this patient and I concur with the Shift Assessment completed by the Licensed Practical Nurse today this shift.
[2020-09-01 05:21] LABS: ALBUMIN 2.5 g/dL (3.4-5.0); ALKALINE PHOSPHATASE 70 U/L (30-120); ALT (SGPT) 61 U/L (10-68); BILIRUBIN - TOTAL 0.18 mg/dL (0.2-1.3); CALC OSMOLALITY 273 mosm/kg (275-300); CALCIUM 7.9 mg/dL (8.5-10.1); CHLORIDE - SERUM 104 mmol/L (98-107); CKMB 0.9 U/L (0.0-3.6); CREATININE - SERUM 0.6 mg/dL (0.6-1.3); GLUCOSE 118 mg/dL (74-106); MAGNESIUM - SERUM 1.7 mg/dL (1.8-2.4); POTASSIUM - SERUM 3.4 mmol/L (3.5-5.1); PROTEIN - SERUM 6.1 g/dL (6.4-8.2); SODIUM 137 mmol/L (136-145); UREA NITROGEN 9 mg/dL (7-18); eGFR NON AFRICAN AMERICAN > 90 mL/min (90-120)
[2020-09-01 05:27] LABS: CREATINE KINASE 359 UL (21-215)
[2020-09-01 08:37] VITALS: BP 107/59
--- NOTE | 2020-09-01 09:06 | NUR ---
ASSESSMENT PER FLOW SHEET. AM MEDS. ELECTROLYTE PROTOCOL. DECLINES CREAM TO LEGS AT THIS TIME. PATIENT WANTS TO REST. PATIENT REPORTS EPIGASTRIC PAIN WHEN SHE SWALLOWS.
[2020-09-01 11:17] VITALS: BP 122/53
--- NOTE | 2020-09-01 12:01 | EC ---
PATIENT:ERIN BA DATE OF SERVICE: 08/28/20 SEX: F MEDICAL RECORD: [id number] DATE OF : [birth year] LOCATION:[facility] AGE OF PATIENT: 19 ADMISSION DATE: 08/28/20 REFERRING PHYSICIAN: INTERPRETING PHYSICIAN: NASRIN VERGARA MD ECHOCARDIOGRAM REPORT ECHO CHARGES 4 ECHO COMPLETE Date: 08/31/20 CLINICAL DIAGNOSIS: LVF ECHOCARDIOGRAPHIC MEASUREMENTS (adult normal given) AC root (d.<3.7cm) 3.0 cm LV Septum d (<1.2 cm> 1.1 cm Valve Excursion 2.3 cm LV Septum (systole) 1.3 cm Left Atria (s.<4.0cm> 3.8 cm LVPW d(<1.2cm) 1.0 cm RV (d.<2.3cm) 3.9 cm LVPW (sytole) 1.3 cm LV diastole(<5.6CM) 4.6 cm MV E-F(>70mm/sec) cm LV systole 2.8 cm LVOT Diameter 2.1 cm MV exc.(>10mm) cm Est.ejection fraction (50-75%) 55 % DOPPLER: LVIT cm/sec A 66 cm/sec E 100 cm/sec LA cm/sec RVSP 30 mmHg LVOT 128 cm/sec AOP1/2T m/s Asc. Ao 188 cm/sec RVOT 126 cm/sec RA 5.0 cm/sec PA 135 cm/sec AV Gradient Peak 14 mmHg AV Mean 7 mmHg AV Area 2.3 cm MV Gradient Peak 5 mmHg MV Mean 2 mmHg MV Area cm COMMENTS: Board Certified Arts Therapist: Michael SCHWAB Director Social Service: 5 Dr. Vergara TAPE# Pericardial Effusion N DATE OF SERVICE: CLINICAL DIAGNOSIS: IV drug usage. INTERPRETATION: Normal left ventricular chamber size and contractile function, ejection fraction of 55% to 60%. Left atrial chamber appears normal. Right atrium and right ventricular chamber size and function appears normal. Aortic valve appears normal. No aortic stenosis/regurgitation. Mitral valve appears normal. No mitral regurgitation. Tricuspid valve appears normal. Trace tricuspid regurgitation. Pulmonic valve appears normal. No pulmonary ECHOCARDIOGRAM REPORT [id number] ERIN BA regurgitation. No pericardial effusion visualized. FINAL IMPRESSION: Normal left ventricular chamber size and contractile function, ejection fraction 55% to 60%. TRANSINT:[id number] Voice Confirmation ID: [id number] DOCUMENT ID: [id number] NASRIN VERGARA MD at 1201 CC: [id number] DICTATION DATE: 08/31/20 1453 PRINTED CIRCUIT BOARDS PLASMA ETCHER: 08/31/20 1621 ADM IN [facility] [address] [place] [address]
--- NOTE | 2020-09-01 12:18 | NUR ---
RESULTS OF GRAM + BLOOD CULTURES TO JATINDER GLASER APN
[2020-09-01 16:23] VITALS: BP 100/53
[2020-09-01 19:34] VITALS: Ht 180.3 cm; Wt 95.5 kg
[2020-09-01 20:00] VITALS: BP 121/58
--- NOTE | 2020-09-01 21:11 | NUR ---
UP FOR SHOWER AND LINEN CHANGE TOLERATED WELL. CONSENTS FOR GI LAB SIGNED PER PATIENT. INSTRUCTED ON NPO AFTER MN. STATES UNDERSTANDING.
--- NOTE | 2020-09-01 23:30 | NUR ---
20 guage 8 cm midline placed with US under aseptic technique to rt basilic vein without difficulty. Line flushed, capped and stabalized with securement device, biopatch applied, and tegrederm adhered to skin.
[2020-09-02] VITALS: BP 186/63
[2020-09-02 04:00] VITALS: BP 145/63
[2020-09-02 08:08] LABS: BASOPHILS 0.6 % (0-2); EOSINOPHILS 3.4 % (0-7); HEMATOCRIT 35.3 % (36.0-48.0); HEMOGLOBIN 11.9 g/dL (12-16); LYMPHOCYTES 44.2 % (15-50); MCH 29.6 pg (26.0-34.0); MCHC 33.6 g/dL (31.0-37.0); MCV 88.2 fL (80.0-100.0); MEAN PLATELET VOLUME 7.4 fL (7.4-10.4); MONOCYTES 12.8 % (2-11); RDW 12.9 % (11.5-14.5); WBC 6.3 10x3/uL (4.8-10.8)
[2020-09-02 08:13] LABS: PLATELET COUNT 264 10x3/uL (130-400)
[2020-09-02 08:27] VITALS: BP 122/66
[2020-09-02 08:33] LABS: ALBUMIN 2.5 g/dL (3.4-5.0); ALKALINE PHOSPHATASE 70 U/L (30-120); ALT (SGPT) 52 U/L (10-68); BILIRUBIN - TOTAL 0.16 mg/dL (0.2-1.3); CALCIUM 8.2 mg/dL (8.5-10.1); CARBON DIOXIDE 31.4 mmol/L (21.0-32.0); CHLORIDE - SERUM 105 mmol/L (98-107); CKMB 0.9 U/L (0.0-3.6); CREATININE - SERUM 0.7 mg/dL (0.6-1.3); GLUCOSE 99 mg/dL (74-106); MAGNESIUM - SERUM 1.8 mg/dL (1.8-2.4); POTASSIUM - SERUM 3.9 mmol/L (3.5-5.1); PROTEIN - SERUM 6.3 g/dL (6.4-8.2); SODIUM 140 mmol/L (136-145); eGFR NON AFRICAN AMERICAN > 90 mL/min (90-120)
[2020-09-02 08:36] LABS: CALC OSMOLALITY 278 mosm/kg (275-300); CREATINE KINASE 221 UL (21-215); UREA NITROGEN 13 mg/dL (7-18)
[2020-09-02 09:01] LABS: HCG URINE NEGATIVE (NEGATIVE)
--- NOTE | 2020-09-02 10:19 | NUR ---
received call from medical imaging that patient isto be npo for us of abdomen, was not told this in report and patient just took a bite of her breakfast, was told to let patient know not to eat or drink after this until us completed or cancelled, patient verbalized understanding
--- NOTE | 2020-09-02 10:20 | NUR ---
PT WAS NOT MADE NPO 09/01 FOR THURSDAY ABDOMEN ULTRASOUND, SPOKE WITH NURSE FERNANDO, SHE WILL MAKE PT NPO 09/02 FOR THURSDAY MORNING ULTRASOUND ABDOMEN. ULTRASOUND ABDOMEN SCHEDULED FOR Thursday. RECRUITING INTERN KRISTIN COUCH
[2020-09-02 12:54] VITALS: BP 98/63
--- NOTE | 2020-09-02 14:45 | NUR ---
I have reviewed this patient and I concur with the Shift Assessment completed by the Licensed Practical Nurse today this shift.
[2020-09-02 16:43] VITALS: BP 133/63
[2020-09-02 20:00] VITALS: BP 126/78
--- NOTE | 2020-09-02 23:16 | NUR ---
I have reviewed this patient and I concur with the Shift Assessment completed by the Licensed Practical Nurse today this shift.
[2020-09-03 04:00] VITALS: BP 147/77
[2020-09-03 08:25] VITALS: BP 123/72
[2020-09-03 10:01] LABS: BASOPHILS 0.5 % (0-2); EOSINOPHILS 3.3 % (0-7); HEMATOCRIT 32.7 % (36.0-48.0); HEMOGLOBIN 11.1 g/dL (12-16); LYMPHOCYTES 39.4 % (15-50); MCH 29.9 pg (26.0-34.0); MCHC 34.1 g/dL (31.0-37.0); MCV 87.7 fL (80.0-100.0); MEAN PLATELET VOLUME 7.7 fL (7.4-10.4); MONOCYTES 9.2 % (2-11); NEUTROPHILS 47.6 % (40-80); PLATELET COUNT 275 10x3/uL (130-400); RBC 3.73 10x6/uL (4.00-5.40); RDW 12.7 % (11.5-14.5); WBC 6.5 10x3/uL (4.8-10.8)
[2020-09-03 10:23] LABS: ALBUMIN 2.4 g/dL (3.4-5.0); ALKALINE PHOSPHATASE 67 U/L (30-120); BILIRUBIN - TOTAL 0.19 mg/dL (0.2-1.3); CALC OSMOLALITY 277 mosm/kg (275-300); CALCIUM 7.9 mg/dL (8.5-10.1); CARBON DIOXIDE 27.7 mmol/L (21.0-32.0); CHLORIDE - SERUM 104 mmol/L (98-107); CKMB 1.2 U/L (0.0-3.6); CREATINE KINASE 133 UL (21-215); CREATININE - SERUM 0.7 mg/dL (0.6-1.3); GLUCOSE 133 mg/dL (74-106); MAGNESIUM - SERUM 1.5 mg/dL (1.8-2.4); POTASSIUM - SERUM 4.2 mmol/L (3.5-5.1); PROTEIN - SERUM 6.1 g/dL (6.4-8.2); SODIUM 138 mmol/L (136-145); UREA NITROGEN 13 mg/dL (7-18); eGFR NON AFRICAN AMERICAN > 90 mL/min (90-120)
[2020-09-03 10:24] LABS: ALT (SGPT) 35 U/L (10-68)
[2020-09-03] MEDS ORDERED: NYSTATIN100000 UN4 PO (11:21)
[2020-09-03] MEDS ORDERED: MYCOLOG CREAM15 GM TOPICAL (11:21)
[2020-09-03] MEDS ORDERED: ZYPREXA10 MG PO (11:22)
[2020-09-03] MEDS ORDERED: Triple Antibiotic Oi TOPICAL (11:22)
[2020-09-03] MEDS ORDERED: PROTONIX40 MG PO (11:22)
[2020-09-03] MEDS ORDERED: CARAFATE1 G PO (11:22)
[2020-09-03] MEDS ORDERED: FLORAJEN DIGES1 EACH PO (11:22)
[2020-09-03] MEDS ORDERED: TRAZODONE HCL50 MG PO (11:22)
[2020-09-03] MEDS ORDERED: VIBRAMYCIN 100100 MG PO ×2 (11:23→11:25)
--- NOTE | 2020-09-03 12:13 | NUR ---
WENT OVER DC PAPERWORK WITH PATIENT , IV DC WITH CATHETER INTACT, NO OTHER NEEDS VOICED. CONTINUE WITH PLAN OF CARE
--- NOTE | 2020-09-03 12:16 | MORECARE ---
CASE MANAGEMENT DISCHARGE SUMMARY PATIENT: ERIN BA UNIT: [id number] ADM DATE: 08/28/20 AGE: 19 : [birth year] SEX: F ROOM/BED: D.2238 AUTHOR: ADONIS,DOC PHYSICIAN: REFERRING PHYSICIAN: SHAZIA CORONA MD DATE OF SERVICE: 09/03/20 Case Management Discharge Planning Summary COMMENTS ENTERED DATE: 09/03/20 12:11 CT COMMENT TYPE: Discharge Planning REVIEWER: Ariana Wilkerson Met with patient at bedside about dc planning needs. Information given to her for [facility] for drug treatment. CM offered her bus tickets or a taxi for somewhere. She does not want it. I gave her my contact information. She states she lives on the streets. She is aware of the homeless shelters, etc. CM to follow and assist as needed. DCP REVIEW SUMMARY ANTICIPATED D/C DATE: EXPECTED LOS : CASE STATUS: DCP Initiated INITIAL REVIEW: 08/28/2020 INITIAL REVIEWER: Ariana Wilkerson FINAL DISCHARGE DISPOSITION: : FINAL REVIEWER: FINAL REVIEW DATE: DCP Focus Questions & Answers DCP Screen QUESTION: ANSWER High Risk Factors: : Poor social support DCP Evaluation QUESTION: ANSWER Patient's ability to cope with chronic illness : d. No chronic illness Would patient like to participate in any Care Coordination programs (if applicable): : Not applicable Mental health screen: : No mental health history DCP Re-evaluation QUESTION: ANSWER Would patient like to participate in any Care Coordination programs (if applicable): : Not applicable PATIENT: ERIN BA ENCOUNTER: [id number] MEDICAL RECORD#: [id number] ADMISSION DATE: 08/28/2020 DISCHARGE DATE: 09/03/2020 ATTENDING MD: CHLOE CORONA : AGE: 19 MARITAL STATUS: S DC PLAN ID: [id number] FACILITY: [facility] PRINTED ON: 09/03/20 12:16 CT All edits/amendments must be made on the electronic document DICTATION DATE: 09/03/201215 BEHAVIORAL HEALTH CASE MANAGER: DOLORES 09/03/20 1216 RPT#: [id number] DC DATE:09/03/20 STATUS: DIS IN [id number] [place] [address] END OF REPORT
--- NOTE | 2020-09-03 14:25 | OP ---
PATIENT NAME: ERIN BA MEDICAL RECORD: [id number] :[birth year] LOCATION:D[id number] ADMISSION DATE:08/28/20 SURGEON: FELIPE BURTON MD DATE OF OPERATION: 09/01/2020 PREOPERATIVE DIAGNOSIS: Odynophagia. POSTOPERATIVE DIAGNOSES: 1. Odynophagia. 2. Severe hemorrhagic esophagitis involving the distal end of the esophagus. 3. Punctate fundal and cardial ulcers. 3. Antral ulcers, acute. 4. Mild bulbar duodenitis. PROCEDURE: Esophagogastroduodenoscopy with antral biopsy. SURGEON: Felipe Burton M.D. SLOT MACHINE REPAIRER: None. BLOOD LOSS: Minimal. ANESTHESIA: IV sedation. COMPLICATIONS: None. The risks, possible complications, and alternatives to the procedure were explained to the patient. She elected to proceed. The discussion specifically included, but was not limited to, bleeding requiring emergency reoperation, infection, and endoscopic perforation. ENDOSCOPIC COURSE: The patient was conveyed to the endoscopy suite electively on 09/01/2020. IV sedation was induced by the anesthesia staff. A bite block was inserted. A gastroscope was inserted into the mouth. It was advanced easily into the hypopharynx. The esophagus was easily intubated as well as stomach and duodenum. Upon withdrawal, retroflexed and angulus views were obtained. Antral biopsies were obtained. I then withdrew the endoscope under direct vision. I have discussed this case with a nurse practitioner, Kaylah Arriaga, I told her that the patient needs to be on a proton pump inhibitor and Carafate, which she is already on in the hospital. TRANSINT:[id number] Voice Confirmation ID: [id number] DOCUMENT ID: [id number] 09/03/2020 Edited for tissue coordinator errors. FELIPE BURTON MD at 1425 CC: [id number] DICTATION DATE: 09/02/20 0857 REFRIGERATION UNIT REPAIRER: 09/02/20 1123 DIS IN 09/03/20 [id number] [place] [address]
--- NOTE | 2020-09-05 09:45 | MORECARE ---
CASE MANAGEMENT DISCHARGE SUMMARY PATIENT: ERIN BA UNIT: [id number] ADM DATE: 08/28/20 AGE: 19 : 98 SEX: F ROOM/BED: D.2238 AUTHOR: ADONSI,DOC PHYSICIAN: REFERRING PHYSICIAN: SHAZIA CORONA MD DATE OF SERVICE: 09/05/20 Case Management Discharge Planning Summary COMMENTS ENTERED DATE: 09/03/20 12:11 CT COMMENT TYPE: Discharge Planning REVIEWER: Ariana Wilkerson Met with patient at bedside about dc planning needs. Information given to her for [facility] for drug treatment. CM offered her bus tickets or a taxi for somewhere. She does not want it. I gave her my contact information. She states she lives on the streets. She is aware of the homeless shelters, etc. CM to follow and assist as needed. DCP REVIEW SUMMARY ANTICIPATED D/C DATE: EXPECTED LOS : CASE STATUS: DCP Initiated INITIAL REVIEW: 08/28/2020 INITIAL REVIEWER: Ariana Wilkerson FINAL DISCHARGE DISPOSITION: : FINAL REVIEWER: FINAL REVIEW DATE: DCP Focus Questions & Answers DCP Screen QUESTION: ANSWER High Risk Factors: : Poor social support DCP Evaluation QUESTION: ANSWER Patient's ability to cope with chronic illness : d. No chronic illness Would patient like to participate in any Care Coordination programs (if applicable): : Not applicable Mental health screen: : No mental health history DCP Re-evaluation QUESTION: ANSWER Would patient like to participate in any Care Coordination programs (if applicable): : Not applicable PATIENT: ERIN BA ENCOUNTER: [id number] MEDICAL RECORD#: [id number] ADMISSION DATE: 08/28/2020 DISCHARGE DATE: 09/03/2020 ATTENDING MD: CHLOE CORONA : AGE: 19 MARITAL STATUS: S DC PLAN ID: [id number] FACILITY: [facility] PRINTED ON: 09/05/20 9:45 CT All edits/amendments must be made on the electronic document DICTATION DATE: 09/05/20944 [place]: DOLORES 09/05/20944 RPT#: [id number] DC DATE:09/03/20 STATUS: DIS IN [id number] [place] [address] END OF REPORT
== END 2020-09-03 12:15 | disposition home or self-care (01) | DRG 557 ==
LOC: D.ER 12:43 → D.EDHOLD 21:21 → D.MS 21:21
PROVIDERS: Anesthesiology; Emergency Medicine; Family Medicine; Nurse Practitioner Family; ADMIT Family Medicine; ATTEND Family Medicine
PROC: 0DB58ZX Excision of Esophagus, Via Natural or Artificial Opening Endoscopic, Diagnostic (ICD-10-PCS; principal; 2020-09-01)
DX: M62.82 Rhabdomyolysis (principal); K20.91 Esophagitis, unspecified with bleeding; K22.11 Ulcer of esophagus with bleeding; N17.9 Acute kidney failure, unspecified; E87.1 Hypo-osmolality and hyponatremia; E86.0 Dehydration; Z59.0 Homelessness; T14.8XXA Other injury of unspecified body region, initial encounter; X58.XXXA Exposure to other specified factors, initial encounter; K76.9 Liver disease, unspecified; F20.9 Schizophrenia, unspecified; F31.9 Bipolar disorder, unspecified; F60.3 Borderline personality disorder; F15.10 Other stimulant abuse, uncomplicated; F17.210 Nicotine dependence, cigarettes, uncomplicated; R13.10 Dysphagia, unspecified; B19.20 Unspecified viral hepatitis C without hepatic coma; Q56.0 Hermaphroditism, not elsewhere classified